=== PATIENT | female | born 1980 | race African-American/Black ===

== ENCOUNTER 2022-03-11 19:14 | Emergency (ER) | payer MEDICAID ==
[~2022-03-11] VITALS: Ht 160 cm; Wt 81.7 kg
[2022-03-11 19:40] VITALS: BP 125/79
== END 2022-03-12 00:48 | disposition left against medical advice (07) ==
LOC: ER 19:14
DX: Z53.21 Procedure and treatment not carried out due to patient leaving prior to being seen by health care provider (principal)